=== PATIENT | male | born 1975 | race African-American/Black ===

== ENCOUNTER 2018-03-07 00:10 | Emergency (ER) | payer OTHER ==
[2018-03-07 01:32] LABS: INR-International Normal Ratio 1.2; PTT 29.3 SEC (22.9-36.1); Prothrombin Time 15.4 SEC (12.0-14.7)
[2018-03-07 01:46] LABS: ALT (SGPT) 12 U/L (8-55); AST (SGOT) 13 U/L (5-34); Alkaline Phosphatase 72 U/L (40-150); Anion Gap 16 mmol/L (10-20); BUN (Urea Nitrogen) 21 mg/dL (8.9-20.6); Bilirubin, Total 0.5 mg/dL (0.2-1.2); Calc. Creatinine Clearance 0 mL/min (70-130); Calcium 9.5 mg/dL (7.8-10.44); Carbon Dioxide 33 mmol/L (22-29); Chloride 94 mmol/L (98-107); Estimated GFR-MDRD Greater than 90; Globulin 3.6 g/dL (2.4-3.5); Glucose 159 mg/dL (70-105); Iron 30 ug/dL (65-175); Iron Binding Capacity, Total 318 mcg/dL (261-462); Potassium 3.4 mmol/L (3.5-5.1); Protein, Total 7.6 g/dL (6.0-8.3); Sodium 140 mmol/L (136-145)
[2018-03-07 01:55] LABS: Hemoglobin 17.1 g/dL (14.0-18.0); Lymphocytes 6 % (21-51); MDiff Complete? YES; Mean Corpuscular HGB CONC 31.6 g/dL (32.0-36.0); Mean Corpuscular Hemoglobin 25.3 pg (27.0-31.0); Mean Corpuscular Volume 80.2 fL (78.0-98.0); Mean Platelet Volume 7.8 fL (7.4-10.4); Monocytes 3 % (0-10); Neutrophil 91 % (42-75); PLT Morphology Comment Appears Increased; Platelet Count 671 thou/uL (130-400); RBC Distribution Width 12.8 % (11.5-14.5); RBC Morphology Normal; Red Blood Cell (RBC) Count 6.76 mill/uL (4.70-6.10); White Blood Cell (WBC) Count 24.6 thou/uL (4.8-10.8)
[2018-03-07] MEDS ORDERED: Ondansetron HCl/PF 4 MG/2 ML Vial ONE ×2 (02:50→07:55)
[2018-03-07] MEDS ORDERED: Morphine 4 MG/ML VIAL ONE ×2 (02:50→07:55)
[2018-03-07] MEDS ORDERED: Pantoprazole 40 MG VIAL ONE (02:50)
[2018-03-07] MEDS ORDERED: Piperacillin/Tazobactam 4.5 GM VIAL ONE (05:23)
--- NOTE | 2018-03-07 08:38 | CT ---
PRELIMINARY REPORT/[facility]/EMERGENTY AFTER-HOURS PROCEDURE CT Abdomen and Pelvis With Intravenous Contrast CLINICAL HISTORY: 42 years old, male; Pain; Abdominal pain; Generalized; Prior surgery; Patient HX: Er 4; 42 [facility] to ed with abdominal pain. Pt reports he had part of his pancreas removed due to pancreatic cancer on february 18, was hospitalized for 3 days at [facility] post surgery, and has been having abdominal pain with associated diarrhea, nausea, vomiting, hematemesis, hematochezia, an d appetite changes since returning to his unit on february 21. Pt reports HX of marijuana abuse. P t reports he was diagnosed with pancreatic cancer around 2 months ago, reports cancer metastasized to his liver, reports no known plan for further treatment, denies any chemo or radiation treatment. TECHNIQUE: Axial computed tomography images of the abdomen and pelvis with intravenous contrast. Coronal reformatted images were created and reviewed. COMPARISON: No relevant prior studies available. FINDINGS: Lung bases: Normal. No mass. No consolidation. Mediastinum: Moderate wall thickening of the visualized distal esophagus, likely edema and/or inflamm ation. ABDOMEN: Liver: 2.5 cm and 7 cm fluid collections in the partial pancreatectomy bed, possibly postoperative ci rrhosis or pseudocysts. Multiple low attenuation masses throughout the periphery of the liver, the la rgest measuring approximately 4.8 cm in diameter, possibly metastases. Gallbladder and bile ducts: Normal. Pancreas: Surgical changes of prior resection of the pancreatic body and tail. Spleen: Normal. Adrenals: Normal. Kidneys and ureters: Normal. Stomach and bowel: Multiple loops of nondilated, gas and fluid-filled small and large bowel, possibly enteritis/diarrhea. PELVIS: Appendix: Appendix is normal. Bladder: Normal. Reproductive: Normal as visualized. ABDOMEN and PELVIS: Intraperitoneal space: Normal. No free air. No significant fluid collection. Bones/joints: No acute fracture. No dislocation. Soft tissues: Normal. Vasculature: Multiple phleboliths within the pelvis. No abdominal aortic aneurysm. Lymph nodes: Multiple small lymph nodes in the right lower quadrant and mesenteric root, likely react isabel, but nonspecific. IMPRESSION: 1. Moderate wall thickening of the visualized distal esophagus, likely edema and/or inflammation. 2. 2.5 cm and 7 cm fluid collections in the partial pancreatectomy bed, possibly postoperative cirrho sis or pseudocysts. 3. Multiple low attenuation masses throughout the periphery of the liver, the largest measuring appro ximately 4.8 cm in diameter, possibly metastases. 4. Multiple loops of nondilated, gas and fluid-filled small and large bowel, possibly enteritis/diarr hea. 5. Incidental/non-acute findings are described above. Thank you for allowing us to participate in the care of your patient. Dictated and Authenticated by: Austin Rice MD 03/07/2018 3:24 AM Central Time ([place] & [place]) FINAL REPORT EMERGENT AFTER HOURS CT ABDOMEN AND PELVIS WITH IV CONTRAST: DATE: 03/07/2018. HISTORY: Abdominal pain. History of pancreatic cancer with a history of partial resection of the pancreas on 02/21 of this year. The patient has diarrhea, nausea, vomiting, and abdominal pain as well as hematem esis and hematochezia. IMPRESSION: 1. Postsurgical changes related to resection of the body and tail of the pancreas with a large fluid collection seen in the region of resection of the pancreas measuring 9.7 cm x 6 cm in greatest dimen sions. Findings may be related to postoperative collection or pseudocyst formation. 2. Lobulated low-density structure along the periphery of the anterior aspect of the right hepatic l obe. The largest dimension of one of these structuress is approximately 4.8 cm, and the hypodense co llection/lesions do appear to be contiguous with one another. Metastatic lesions and possibly treate d lesions is a possibility. No prior studies are available for direct comparison. 3. Cholecystectomy. 4. Suggestion of mild enhancement of the paz of the gastric mucosa which could be related to gastr itis. In addition, there is mild focal thickening involving the junction of the 2nd an 3rd portions of the duodenum with mild enhancement of the mucosa proximal jejunal loops of small bowel, and these findings could be related to enteritis. 5. Focal thickening involving the distal esophagus. Endoscopy may be helpful for further evaluation . 6. Nonspecific mildly prominent lymph nodes within the central mesentery measuring up to 1.1 cm in s hort axis dimension. These may be reactive in origin, but given the history of pancreatic cancer, me tastatic lymph nodes cannot be entirely excluded. 7. Diminished enhancement of the spleen which could be related to infarction of the spleen due to re cent postsurgical changes. 8. Findings are in agreement with the preliminary report by [employer]. POS: [facility]
[2018-03-07 09:22] LABS: Bilirubin Small (Negative); Blood, Urine Negative (Negative); Clarity CLEAR (Clear); Glucose, Urine (Dipstick) Negative (Negative); Leukocyte Negative (Negative); Nitrite Negative (Negative); Protein, Urine (Dipstick) 30 mg/dL (Neg-Trace); pH, Urine 5.5 (5.0-9.0)
[2018-03-07 09:24] LABS: Bacteria/HPF None Seen HPF (None Seen); Hyaline Casts/LPF 0-3 HYALINE CAST LPF (0-3 Hyaline); Pathc Cast-AUWi Flag 0.14 (0-2.49); RBC/HPF 0-3 HPF (0-3); Squamous Epithelial 0-3 HPF (0-3); WBC/HPF 0-3 HPF (0-3)
[2018-03-07 10:05] LABS: Specific Gravity, Urine Greater than 1.035 (1.002-1.036)
[2018-03-07] MEDS ORDERED: ISOVUE-370 76%-LOCM 1 ML ONE (15:11)
== END 2018-03-07 11:15 | disposition short-term general hospital (02) ==
LOC: ERS 00:10 → EEVIPCON 00:10 → ERS 11:15
DX: T81.44XA Sepsis following a procedure, initial encounter (principal); Z85.07 Personal history of malignant neoplasm of pancreas; Z79.899 Other long term (current) drug therapy
CPT/HCPCS: 36415; 74177; 80053; 81003; 82728; 83540; 83550; 83605; 85025; 85610; 85730; 86850; 86900; 86901; 87040; 93005; 96361; 96365; 96375; 96376; C9113; J2270; J2405; J2543